=== PATIENT | female | born 1995 | race Caucasian/White ===

== ENCOUNTER 2018-04-16 17:56 | Emergency (ER) | payer BC ==
[2018-04-16] MEDS ORDERED: KETOROLAC TROMETHAMINE 10 MG TABLET PO ONE (18:20)
--- NOTE | 2018-04-16 20:01 | ER Document Report ---
ED Headache - General Chief Complaint: Headache >24 hrs old Stated Complaint: HEADACHE Time Seen by Provider: 04/16/18 18:20 Notes: History of Present Illness Chief Complaint: [headache] [22 years old female presents today with headache over the right side. After an episode of torticollis. And also right upper neck pain. No nausea vomiting focal weaknesses. No fever chills or other constitutional symptoms. ] History obtained from [patient] Symptoms began: [today] Onset: [gradual] Timing: [constant] Quality: ["pain"] No different than prior severe headaches Intensity: [severe, but not worst ever] Location: [frontal] Aggravating factors: [none] Relieving factors: [none] Denies neck pain or stiffness Denies rash Denies visual loss or eye pain. Denies tick bite Denies head injury Denies weakness, numbness, incontinence, seizure, LOC Review of systems : All other systems negative as reviewed. CONSTITUTIONAL No fever. EYES No eye pain. ENT No URI symptoms, No sore throat, No ear pain. CARDIOVASCULAR No chest pain, No palpitations, No edema. RESPIRATORY No Cough, No SOB, No wheezing. GASTROINTESTINAL No abdominal pain, No nausea, No vomiting, No diarrhea, No constipation, No melena, No rectal bleeding. GENITOURINARY No UTI symptoms. MUSCULOSKELETAL No back pain. SKIN No Rash. NEUROLOGIC No paralysis, No parathesias. ENDOCRINE No polyuria. HEMO/LYMPATIC Patient does not bruise easily. PSYCHIATRIC No depression. Physical Exam CONSTITUTIONAL Vital signs reviewed, Comfortable, Alert and oriented X 3. HEAD Atraumatic, Normal cephalic. EYES No discharge from eye, Sclera are not injected, Extraocular muscles intact, Conjunctiva are normal.perrl,2mm, no photophobia, no nystagmus, fundi wnl. ENT Ears normal to inspection, Nose examination normal, Oropharynx normal, Mucous membranes pink, moist, normal in color. NECK Normal inspection, supple, Normal ROM, No jugular venous distention, No meningeal signs, no carotid bruit or tenderness. RESPIRATORY/CHEST Chest is non-tender, Breath sounds normal, No respiratory distress. CARDIOVASCULAR RRR, Heart sounds normal. ABDOMEN Abdomen is non-tender, No masses, Bowel sounds normal, No distension, No peritoneal signs. BACK Normal inspection. UPPER EXTREMITY Inspection normal, No cyanosis/clubbing/edema. LOWER EXTREMITY Inspection normal, No cyanosis/clubbing/edema, No calf tenderness. NEURO cn intact, no astreixis, no pronator drift, finger to nose testing coordinated bilaterally, 1+ deep tendon reflexes x 4 ext, down going babinski bilaterally , normal speech, Motor exam normal, Sensory exam normal. SKIN Skin is warm and dry, No rash. LYMPHATIC No adenopathy in neck. PSYCHIATRIC Normal affect. TRAVEL OUTSIDE OF THE [place] IN LAST 30 DAYS: No - HPI Notes: Dictated - Related Data Allergies/Adverse Reactions: No Known Allergies Allergy (Unverified 04/16/18 17:57) Past Medical History - Social History Smoking Status: Never Smoker Frequency of alcohol use: None Lives with: Family Family History: Reviewed & Not Pertinent Patient has suicidal ideation: No Patient has homicidal ideation: No Renal/ Medical History: Reports: Hx Kidney Stones. Denies: Hx Peritoneal Dialysis Past Surgical History: Reports: Hx Kidney (Renal Surgery) Review of Systems - Review of Systems Notes: Dictated Physical Exam - Vital signs Vitals: Temp Pulse Resp BP Pulse Ox 97.5 F 66 18 127/83 H 99 04/16/18 18:00 04/16/18 18:00 04/16/18 18:00 04/16/18 18:00 04/16/18 18:00 - Notes Notes: Dictated Course - Vital Signs Vital signs: Temp Pulse Resp BP Pulse Ox 97.5 F 66 18 127/83 H 99 04/16/18 18:00 04/16/18 18:00 04/16/18 18:00 04/16/18 18:00 04/16/18 18:00 Discharge - Discharge Clinical Impression: Tension headache Acute cervical sprain Qualifiers: Encounter type: initial encounter Qualified Code(s): S13.9XXA - Sprain of joints and ligaments of unspecified parts of neck, initial encounter Condition: Fair Disposition: HOME, SELF-CARE Instructions: Headache ([facility]), Sprain ([facility]) Prescriptions: Baclofen [Baclofen 10 mg Tablet] 10 mg PO TID #30 tab Naproxen 500 mg PO BID #30 tablet
[2018-04-16 20:21] VITALS: BP 123/62
--- NOTE | 2018-04-16 22:52 | RADIOLOGY REPORT (SQ) ---
EXAM DESCRIPTION: CT head without contrast CLINICAL HISTORY: Headache COMPARISON: None Available. Technique: Contiguous axial images of the brain were obtained without the administration of intravenous contrast. Coronal and sagittal reformats obtained and reviewed. This exam was performed according to our departmental dose-optimization program which includes use of Automated Exposure Control, adjustment of the mA and/or kV according to patient size and/or use of iterative reconstruction technique. Findings: Brain: No hemorrhage. No territorial infarct. No mass effect. No herniation. Ventricles: Within normal limits for patient's age. Bones: No acute osseous abnormality. Paranasal sinuses: Partial opacification of the right maxillary sinus. Large mucous retention cyst in the left maxillary sinus. Remaining paranasal sinuses are clear.. Mastoid air cells: Unremarkable. Soft tissues: No acute abnormality. IMPRESSION: No acute intracranial abnormalities.
== END 2018-04-16 20:21 | disposition home or self-care (01) ==
LOC: ER 17:56
DX: S13.9XXA Sprain of joints and ligaments of unspecified parts of neck, initial encounter (principal); G44.209 Tension-type headache, unspecified, not intractable; M54.2 Cervicalgia; M43.6 Torticollis; X58.XXXA Exposure to other specified factors, initial encounter
CPT/HCPCS: 99284; 70450; J3490